=== PATIENT | male | born 1965 | race Caucasian/White ===

== ENCOUNTER 2020-03-02 14:07 | Emergency (ER) | payer MEDICAID ==
[~2020-03-02] VITALS: Ht 177.8 cm; Wt 90.7 kg
[~2020-03-02 14:07] MED LIST: IBUPROFEN600 MG ORAL; LIDODERM700 M1 TOPIC; NORCO 5-325 TA1 EACH ORAL; ROBAXIN-750750 MG PO
--- NOTE | 2020-03-02 14:31 | Emergency Room Report ---
History of Present Illness General Chief Complaint: Lower Extremity Injury Source: Patient Present Illness HPI Disclaimer: Please note that this report is being documented using DRAGON technology. This can lead to erroneous entry secondary to incorrect interpretation by the dictating instrument. HPI: 54-year-old [id number] male presents for evaluation of right knee and left shoulder pain. 3 days ago the patient was taking the trash out going down the stairs when he slipped on the last step falling onto his right side and talking his left shoulder to avoid a head injury. There is no head injury or loss conscious. He is complaining of pain over the right knee and moderate swelling over the past 3 days. Has been icing and elevating. PMD prescribed him Tylenol 3 which helps with the pain but he requires the use of a cane for stability. Prior history of patella repair 6 months ago. Also complaining of left shoulder pain when abducting past 90 degrees. Denies numbness, tingling or weakness. No pain in the elbow, hand or back. Does not take blood thinners. PMH: Reviewed PSH: Reviewed Allergies: Reviewed Social Hx: Reviewed Allergies: Coded Allergies: No Known Allergies (Unverified , 04/22/19) COVID-19 Screening Contact w/high risk pt: No Experienced COVID-19 symptoms?: No COVID-19 Testing performed PSYCHOLOGY FELLOW: Yes COVID-19 Screening: Negative COVID-19 COVID-19 Testing Source: month ago Nursing Documentation-PMH Past Medical History: No History, Except For Hx Hypertension: Yes Review of Systems All Other Systems: negative except mentioned in HPI Physical Exam Vital Signs Date Time Temp Pulse Resp B/P (MAP) Pulse Ox O2 Delivery O2 Flow Rate FiO2 03/02/20 14:21 97.9 95 18 152/101 (118) 94 Room Air General: Awake and alert, no acute distress HEENT: NC/AT. EOMI. Resp: Normal work of breathing Skin: Intact. No abrasions, laceration or rash over the exposed skin MSK: Normal tone and bulk. Moving all extremities. No obvious deformity. There is effusion around the right knee. Decreased range of motion secondary to swelling. Pain with palpation of the proximal fibula. Overlying surgical scars are clean dry and intact. No laxity on varus or valgus testing. Stable on anterior posterior drawer testing. The left shoulder has reduced range of motion past 90 degrees of abduction. Full internal internal rotation as well as flexion extension. No palpable step-off or deformity. Full range of motion and no tenderness in the elbow or hand. No anatomic snuffbox tenderness on the left. Neuro: Awake and alert. Mentating appropriately Medical Decision Making Diagnostic Impression: Primary Impression: Left shoulder pain Additional Impression: Right knee pain ER Course 54-year-old male presents for evaluation of right knee and left shoulder pain of 3 days duration after a fall. No head injury or other injury reported. No acute fracture dislocation appreciated on imaging. Prosthetic appears in place. Patient will be discharged with copies of his imaging to follow-up with his orthopedic surgeon next week. He has pain medication from his PMD already. Discussed reasons to return to the ED. He understands and agrees with this treatment plan. Other X-Ray Diagnostic Results Other X-Ray Diagnostic Results #1: X-Ray ordered: Right knee # of Views/Limited Vs Complete: Complete Indication: Pain EP Interpretation: Yes Interpretation: no dislocation, no fractures, other - Surgical prosthetics are in place, soft tissue swelling Impression: Other - Soft tissue swelling, no acute fracture Electronically Signed by: Electronically signed by Dr. Samson Lucia MD Other X-Ray Diagnostic Results #2: X-Ray ordered: Left shoulder # of Views/Limited Vs Complete: Complete Indication: Pain EP Interpretation: Yes Interpretation: no dislocation, no soft tissue swelling, no fractures, other - Osteophytes and arthritic changes Impression: No acute disease Electronically Signed by: Electronically signed by Dr. Samson Lucia MD Last Vital Signs Date Time Temp Pulse Resp B/P (MAP) Pulse Ox O2 Delivery O2 Flow Rate FiO2 03/02/20 14:21 97.9 95 18 152/101 (118) 94 Room Air Disposition: HOME, SELF-CARE Condition: Stable Samson Lucia MD Mar 02, 2020 14:31
--- NOTE | 2020-03-02 15:09 | NUR ---
ED Nurse Note: xray @ bedside
--- NOTE | 2020-03-02 15:23 | NUR ---
ED Nurse Note: Pt walked in from home c/o right knee pain and swelling after mechanical fall on night. Pt denies head injury. Pt also reporting left shoulder pain. Hx of right patella surgery. Respirations even and unlabored on room air. Vitals stable as documented. A+Ox4, speaking in complete sentences. Addendum: 03/02/20 at 1526 by MYRANDA correct time : 1430
[2020-03-02 15:40] VITALS: BP 144/92
--- NOTE | 2020-03-02 15:40 | NUR ---
ED Nurse Note: Pt cleared by health care Provider for discharge. DC instructions/prescription were given and explained to pt and verbalized understanding of teachings. All medical devices such as ID band removed. Pt is AAO x4, ambulatory and left with all personal belongings.
--- NOTE | 2020-03-02 15:50 | Diagnostic Imaging Report ---
FILM RIGHT KNEE HISTORY: Injury Findings: 3 films of the right knee demonstrates postoperative changes with fixation hardware of the distal femur. Postop changes of the patella. Soft tissue swelling is present. Chronic appearing soft tissue calcifications. No acute fracture or dislocation. Impression: No acute fracture or dislocation with soft tissue swelling and postoperative changes of the distal femur.
--- NOTE | 2020-03-02 16:03 | Diagnostic Imaging Report ---
FILM LEFT SHOULDER LEFT SHOULDER, 3 films INDICATION: Injury left shoulder COMPARISON: None FINDINGS: 3 views of the left shoulder are obtained. Bony structures are intact. Bone mineralization is within normal limits. No dislocation at the glenohumeral joint. Joint space narrowing and sclerosis demonstrated. Soft tissues are within normal limits. IMPRESSION: No acute fracture or dislocation identified.
== END 2020-03-02 15:40 | disposition home or self-care (01) ==
LOC: EMR 14:29
DX: M25.511 Pain in right shoulder (principal); M25.561 Pain in right knee; I10 Essential (primary) hypertension; W17.89XA Other fall from one level to another, initial encounter; Y93.89 Activity, other specified; Y92.9 Unspecified place or not applicable
CPT/HCPCS: 73030; 73562; Z7502; 99284